=== PATIENT | male | born 1970 | race Caucasian/White ===

== ENCOUNTER 2022-09-06 13:34 | Emergency (ER) | payer OTHER, SELFPAY ==
[2022-09-06 14:07] VITALS: BP 114/78; PULSE 96; RESP 16; TEMP 36.7; O2SAT 97; BMI 25.7
[2022-09-06 14:43] VITALS: BP 136/84; PULSE 89; RESP 18; O2SAT 97
--- NOTE | 2022-09-06 14:49 | CRLHL7_ITS ---
For Patients: As a result of the Cures Act, medical imaging exams and procedure reports are released immediately into your electronic medical record. You may view this report before your referring provider. If you have questions, please contact your health care provider. INDICATION: Injury. TECHNIQUE: PA chest and 2 detailed views of the right-sided ribs. FINDINGS: Clear lungs. Normal heart size and pulmonary vascularity. Normal included skeleton. No acute displaced right-sided rib fractures are identified. Subtle nondisplaced fractures can be overlooked on plain radiography. IMPRESSION: Negative chest and detailed right rib views. Dictated by Adonis Norton MD @ 09/06/2022 3:42:36 PM (Electronically Signed)
--- NOTE | 2022-09-06 14:52 | ED_ITS ---
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 He reports with certain motions it really hurts. Specially compressing the ribs anteriorly and posteriorly. He has no shortness of breath he has been largely healthy. This happened at work. No radiation of pain he reports the pain at its peak is pretty significant Related Data Allergies Allergy/AdvReac Type Severity Reaction Status Date / Time No Known Drug Allergies Allergy Verified 09/06/22 14:49 Review of Systems Status of ROS: Reports: 6 or more systems reviewed and unremarkable except as noted in History and below PFSH PFS Social History Smoking Status: Never smoker Do you use any of these nicotine containing products: None Second hand tobacco smoke exposure: No How often do you have a drink containing alcohol: 2-3 times a week How many standard drinks containing alcohol do you have on a typical day: 1 or 2 How often do you have six or more drinks on one occasion: Never AUDIT-C Alcohol total score: 3 Non-prescribed substance use: denies use service: Yes Exam Narrative: Exam Narrative: Objective: Patient is alert or x3 Vital signs unremarkable HEENT unremarkable he denies neck pain or upper back pain He has got a marker over his mid to anterior axillary line on the right cross from the nipple line that is area of tenderness there is no crepitus in that area, there is pain in that area with anterior posterior compression of his right chest wall lungs are clear He is ambulatory able to stand Const: Vital Signs, click to edit/add: Vital Signs - 24 hr 09/06/22 14:07 09/06/22 14:43 Temperature 98.1 F Pulse Rate [Right Pulse Oximeter] 96 89 Respiratory Rate 16 18 Blood Pressure [Ri ght Upper Arm] 114/78 136/84 Pulse Oximetry 97 97 Oxygen Delivery Me thod Room Air Room Air Course Vital Signs Vital signs: Initial Vital Signs Temperature 98.1 F 09/06/22 14:07 Temperature Source Temporal Artery Scan 09/06/22 14:07 Pulse Rate 96 09/06/22 14:07 Pulse Rhythm 09/06/22 14:07 Respiratory Rate 16 09/06/22 14:07 Blood Pressure 114/78 09/06/22 14:07 Blood Pressure Mean 90 09/06/22 14:07 Blood Pressure Position Sitting 09/06/22 14:07 Pulse Oximetry 97 09/06/22 14:07 Oxygen Delivery Method 09/06/22 14:07 Vital Signs Temperature 98.1 F 09/06/22 14:07 Pulse Rate 96 09/06/22 14:07 Respiratory Rate 16 09/06/22 14:07 Blood Pressure 114/78 09/06/22 14:07 Pulse Oximetry 97 09/06/22 14:07 Oxygen Delivery Method 09/06/22 14:07 Temperature 98.1 F 09/06/22 14:07 Pulse Rate 89 09/06/22 14:43 Respiratory Rate 18 09/06/22 14:43 Blood Pressure 136/84 09/06/22 14:43 Pulse Oximetry 97 09/06/22 14:43 Oxygen Delivery Method 09/06/22 14:43 Medical Decision Making MDM Narrative Medical decision making narrative: Patient fell with his right rib cage against a railing likely with a rib fracture. Will check an x-ray and rib detail on the right. Will give him oral Toradol now. Disposition pending findings on the x-ray. Addendum: The patient's x-ray by my read looks unremarkable to his ribs, Radiology confirms. Would recommend some anti-inflammatory such as Aleve or ibuprofen and Tylenol. Icing, light activity for the next several days and recheck with primary care doctor at that time to see how he is doing. 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 Discharge Plan Discharge Clinical Impression: Right-sided chest wall pain Patient Disposition: Home, Self-Care Condition: Stable Additional Instructions: Rest, ice, light activity, consider being off work for 2-3 days, recheck with primary care on Sunday or Sunday. Return to ED worsening or problems. Recommend Aleve 2 twice a day for the next 5-7 days as well as Tylenol on a regular basis, ice to the chest wall for 5-10 minutes 4 to 5 times a day for 3 days. Activity Level: Light activity Discharge Diet: Regular Stand Alone Forms: [employer] Info Instructions
[2022-09-06] MEDS: KETOROLAC 10 MG TABLET PO (15:06)
--- NOTE | 2022-09-06 16:43 | ED.NURSE ---
was dc per dr stuart. did not stay for written dc instructions.
== END 2022-09-06 16:15 | disposition home or self-care (01) ==
LOC: ED 16:20
PROVIDERS: Emergency Provider Family Medicine
DX: R07.89 Other chest pain (principal)
CPT/HCPCS: 71101; 99284; A9270